=== PATIENT | male | born 1985 | race Caucasian/White ===

== ENCOUNTER 2022-08-21 05:16 | Emergency (ER) | payer SELFPAY ==
--- NOTE | ~2022-08-21 | US_ITS ---
EXAMINATION: US SCROTUM CLINICAL INFORMATION: Left testicular pain. COMPARISON: None available. TECHNIQUE: A sonogram of the scrotum was performed assessing ryan-scale appearance and color Doppler flow. Spectral Doppler analysis of the arterial and venous flow were performed in the testes bilaterally. FINDINGS: RIGHT: Right testicle measures 5.0 x 2.1 x 3.0 cm, volume 16.7 mL. No focal testicular parenchymal lesions are visualized. Spectral Doppler analysis of the arterial and venous flow is normal in the right testis. Right epididymal head is normal in size. And anechoic cyst measures 0.8 cm. A small right varicocele is seen with vessels measuring up to 0.25 cm and increased flow with Valsalva. No right hydrocele. Right epididymal Doppler flow is normal. LEFT: Left testicle measures 5.0 x 2.0 x 2.9 cm, volume 14.5 mL. No focal testicular parenchymal lesions are visualized. Spectral Doppler analysis of the arterial and venous flow is normal in the left testis. Left epididymal head is normal in size. There is a small left varicocele with vessels measuring up to 0.26 cm and increased flow with Valsalva. No left hydrocele. Left epididymal Doppler flow is normal. US/US scrotum doppler IMPRESSION: 1. No intratesticular abnormality bilaterally. 2. Small bilateral varicoceles. 3. Small right epididymal cyst demonstrates benign features.
--- NOTE | ~2022-08-21 | US_ITS ---
EXAMINATION: US SCROTUM CLINICAL INFORMATION: Left testicular pain. COMPARISON: None available. TECHNIQUE: A sonogram of the scrotum was performed assessing ryan-scale appearance and color Doppler flow. Spectral Doppler analysis of the arterial and venous flow were performed in the testes bilaterally. FINDINGS: RIGHT: Right testicle measures 5.0 x 2.1 x 3.0 cm, volume 16.7 mL. No focal testicular parenchymal lesions are visualized. Spectral Doppler analysis of the arterial and venous flow is normal in the right testis. Right epididymal head is normal in size. And anechoic cyst measures 0.8 cm. A small right varicocele is seen with vessels measuring up to 0.25 cm and increased flow with Valsalva. No right hydrocele. Right epididymal Doppler flow is normal. LEFT: Left testicle measures 5.0 x 2.0 x 2.9 cm, volume 14.5 mL. No focal testicular parenchymal lesions are visualized. Spectral Doppler analysis of the arterial and venous flow is normal in the left testis. Left epididymal head is normal in size. There is a small left varicocele with vessels measuring up to 0.26 cm and increased flow with Valsalva. No left hydrocele. Left epididymal Doppler flow is normal. US/US scrotum IMPRESSION: 1. No intratesticular abnormality bilaterally. 2. Small bilateral varicoceles. 3. Small right epididymal cyst demonstrates benign features.
--- NOTE | ~2022-08-21 | CT_ITS ---
EXAMINATION: CT ABDOMEN AND PELVIS WITHOUT CONTRAST CLINICAL INFORMATION: Left abdominal pain radiating to testicle COMPARISON: None available. TECHNIQUE: Multidetector volumetric imaging was performed from the superior aspect of the liver through the pubic symphysis. Sagittal and coronal reformatted images were obtained on the technologist's workstation. This CT examination was performed using dose optimization techniques as appropriate, variously including the following: *Automated exposure control *Adjustment of mA and/or kV according to patient size (this includes techniques or standardized protocols for targeted exams where dose is matched to indication/reason for exam; i.e. extremities or head) *Use of iterative reconstruction technique DLP: 466 mGy-cm FINDINGS: LUNG BASES: The visualized lung bases are unremarkable. LIVER, GALLBLADDER, AND BILIARY TREE: The liver is normal in size, shape, and attenuation. No focal hepatic lesion or biliary ductal dilatation is present. The gallbladder is unremarkable with no evidence of radiopaque gallstones, gallbladder wall thickening, or obvious pericholecystic inflammatory changes. PANCREAS: Unremarkable. SPLEEN: Unremarkable. ADRENAL GLANDS: Unremarkable. KIDNEYS AND URETERS: No hydronephrosis, perinephric inflammatory changes or perinephric fluid collections are identified. No ureterectasis identified. No urolithiasis visualized. BLADDER: Mild physiologic distention. No mural thickening. No bladder calculi noted. Within the visualized urethra, no calculi identified. GASTROINTESTINAL TRACT: No intestinal dilatation or mural thickening noted. The appendix measures approximately 5.7 mm diameter, within normal limits of size. No periappendiceal inflammatory changes identified. High density material is present in the lumen of the appendix may represent developing more confluent small appendicoliths. The sigmoid mesentery and small bowel mesentery are normal in appearance. Normal appearance of the stomach and duodenum. ABDOMINAL WALL: A periumbilical hernia containing omental fat measures 1 cm in diameter. LYMPH NODES: Normal. VASCULAR: Unremarkable. PELVIC VISCERA: Normal appearance of the prostate and seminal vesicles. OSSEOUS STRUCTURES: Unremarkable. CT/CT abdomen pelvis wo IV con IMPRESSION: Normal unenhanced CT of the abdomen and pelvis. No urolithiasis. No hydronephrosis or ureterectasis. Fleischner guidelines were followed.
[2022-08-21 05:38] VITALS: BP 148/89; PULSE 95; RESP 18; TEMP 36.6; O2SAT 98; BMI 22.8
[2022-08-21 05:52] LABS: Appearance Urine Clear; Color Urine Dark Yellow; Glucose Urine UA Negative (Negative); Leukocyte Esterase Urine Negative (Negative); UMIC TRIGGER UACC YES; Urine Blood Negative (Negative); Urine Ketones Negative (Negative); Urine Protein Negative (Neg-Trace)
[2022-08-21 06:38] VITALS: BP 138/88; PULSE 90; RESP 19; TEMP 36.9; O2SAT 97
[2022-08-21 06:48] LABS: Bacteria Urine None Seen (None Seen); Hyaline Casts Urine 0-2 /LPF (0-2); RBC Urine 0-2 /HPF (0-2); Squamous Epithelial Cell Urine 0-2 /HPF (0-2); WBC Urine 0-5 /HPF (0-5)
--- NOTE | 2022-08-21 07:14 | ED_ITS ---
HPI - Male Genitourinary General Chief complaint: Urogenital-Male Stated complaint: bladder pain, hurts to urinate Time Seen by Provider: 08/21/22 06:44 Source: patient Mode of arrival: ambulatory Limitations: no limitations History of Present Illness HPI Narrative: this is a 37-year-old male who has a history of general herpes who presents to the ER with complaints of LLQ pain with radiation to left testicle/penis, dysuria, urinary frequency x several days. patient reports that he was seen by a out patient provider and diagnosed with urinary tract infection and prescribed Levaquin which he has took for 5 days (complete course). He feels that his symptoms have continued are in are not any better. Patient denies any back pain, vomiting, fever, diarrhea or constipation. He denies any rectal pain or rectal pressure. Patient reports that he is not currently sexually active and last had sexual intercourse about 6 months ago. He reports after that sexual intercourse he developed genital herpes and was diagnosed in [place]. He was prescribed antiviral medication which he took with resolution of his symptoms. At that time he was also tested for gonorrhea and chlamydia and was negative. He denies any new sexual partners since this incident and does not feel that he needs to be tested for STDs. Related Data Allergies Allergy/AdvReac Type Severity Reaction Status Date / Time Unable to Assess Allergy Verified 08/21/22 06:51 Review of Systems Review of Systems: Yes all other systems are reviewed and are negative Constitutional: Constitutional: Reports no additional constitutional complaints, Denies body ache(s), Denies chills, Denies fever(s), Denies headache(s) and Denies weakness Eyes: Eyes: Reports no additional eye complaints and Denies change in vision ENT: Reports system reviewed and no additional complaints, except as documented, Denies dizziness, Denies headache(s), Denies nasal congestion, Den ies nasal discharge and Denies neck pain Cardiovascular: Cardiovascular: Reports no additional cardiovascular complaints, Denies chest pain, Denies leg edema and Denies dyspnea Respiratory: Respiratory: Reports no additional respiratory complaints, Denies cough and Denies dyspnea Gastrointestinal: Gastrointestinal: Reports no additional gastrointestinal complaints, Reports abdominal pain, Denies diarrhea, Denies nausea and Denies vomiting Genitourinary: Genitourinary: Reports dysuria, Denies flank pain, Denies penile discharge, Reports testicular pain, Denies urinary frequency, Denies urinary hesitancy, Denies urinary incontinence and Denies urinary urgency Musculoskeletal: Musculoskeletal: Reports no additional musculoskeletal complaints, Denies back pain, Denies arthralgias, Denies joint swelling, Denies neck pain, Denies numbness and Denies tingling Integumentary/Breasts: Skin/Breast: Reports system reviewed and no additional complaints, except as docu and Denies rash Neurologic: Reports system reviewed and no additional complaints, except as documented, Denies Abnormal speech present, Denies dizziness, Denies headache(s), Denies numbness, Denies tingling and Denies weakness PMFSH Past Medical History Attestation statement: The following information was validated with the patient. Source: old records reviewed and nursing notes reviewed Social History Social History Advance Directives: No Advance Directives Information Provided: No Physical Exam Vital Signs: Vital Signs: Last Vital Signs Temp 98.5 F 08/21/22 06:38 Pulse 73 08/21/22 10:23 Resp 14 08/21/22 10:23 BP 121/84 08/21/22 10:23 Pulse Ox 98 08/21/22 10:23 O2 Del Method Room Air 08/21/22 10:23 BMI result Body Mass Index 22.8 Const: General: cooperative, healthy appearing, comfortable and no acute distress Orientation/consciousness: patient oriented x3 Limitations: no limitations HEENT: Head: Yes normal to inspection Ears: hearing grossly normal bilaterally General nose exam: Normal external nose present Face and sinus: Yes normal facial exam Mouth: Normal oral and palatal mucosa present Throat: Yes posterior oropharynx normal Eyes: General: appearance normal, both eyes and all related structures Pupils: Equal, round and reactive pupils present Neck: Neck: Yes normal visual inspection Chest: Chest palpation & inspection: normal inspection of the chest Resp: Effort & Inspection: normal respiratory effort Auscultation: clear to auscultation bilaterally Cardio: Rate: regular rate Rhythm: regular rhythm Peripheral pulses: Peripheral pulses 2+ throughout GI: Inspection: Yes normal to inspection Palpation (GI): Soft to palpation, Tenderness to palpation present (GI) ( Left lower quadrant tenderness with no rebound or guarding) in the LLQ; Robbins's sign negative, obturator sign negative, psoas sign negative, with no rebound tenderness and Rovsing's sign negative and no guarding Auscultation: normal bowel sounds : 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 Penis: normal penis and uncircumcised Meatus: meatus normal Scrotum: scrotum normal Testes: no testicular swelling and testicular tenderness ( left-sided) Back/Spine/Pelvis: Thoracic/Lumbar Spine: thoracic and lumbar spine normal to inspection Skin: General skin exam: no rashes or lesions noted Neuro: General: patient oriented x3, no focal motor deficits and normal sensation to monofilament Cranial nerves: Yes Equal, round and reactive pupils present Cognition (Neuro): normal cognition Speech: No Abnormal speech present Gait exam (Neuro): Normal gait present Motor exam (neuro): 5/5 motor strength present throughout Extrem: General: Yes normal to inspection Course Course Course Narrative: labs and UA are negative. CT and ultrasound are also unremarkable. Patient does not want STD testing. I do not see any rash consistent with herpes. I did recommend patient take Motrin or Tylenol for pain as needed and follow up with his primary care doctor for any persistent symptoms. I recommend that he seek care if he were to develop any rash consistent with his herpes. Reviewed worrisome signs/symptoms with patient and when to seek additional care. Comfortable with discharge home Medications Administered Discontinued Medications Generic Name Dose Route Start Last Admin Trade Name Nelson PRN Reason Stop Dose Admin Ketorolac Tromethamine 60 mg 08/21/22 06:51 08/21/22 07:59 Ketorolac Tromethamine 60 Mg/2 Ml Vial IM 08/21/22 06:52 60 mg ONCE ONE Administration Medical Decision Making Medical Decision Making [facility] Narrative: this is a 37-year-old male who presents to the ER with complaints of a left lower abdominal pain with radiation to the last testicle/penis with dysuria despite being on Levaquin for 1 week for presumed urinary tract infection. on exam patient with some mild tenderness the left lower quadrant and left testicle with no obvious swelling or deformity. Patient reports he has not been sexually active and and after his last sexual intercourse about 6 months ago he was tested for gonorrhea and chlamydia was negative. He does not feel that he needs additional STI testing. Will obtain labs, UA, CT abdomen pelvis, testicular ultrasound Differential Diagnosis Differential Diagnoses: The differential diagnosis associated with the presentation includes UTI, STI, pyelonephritis, renal colic, testicular torsion, epididymitis Lab Data [facility] Lab Attestation statement: I reviewed the patient's lab results. 08/21/22 08:30 08/21/22 08:30 Labs: Lab Results 08/21/22 08/21/22 08/21/22 Range/Units 05:44 08:30 08:30 WBC 4.6 L (4.8-10.8) X10*3/uL RBC 5.82 H (4.60-5.80) X10*6/uL Hgb 16.0 (14.0-18.0) g/dl Hct 48.2 (42.0-52.0) % MCV 82.8 (80.0-98.0) fL MCH 27.5 (27.0-33.0) pg MCHC 33.2 (31.0-36.0) g/dl RDW 13.7 (11.0-16.0) % Plt Count 205 (160-400) X10*3/uL MPV 8.7 L (9.4-12.4) fL Immature Gran % (Auto) 0.2 (0.0-0.4) % Neut % (Auto) 68.8 (45-73) % Lymph % (Auto) 22.9 (20-40) % [place] % (Auto) 6.8 (2-11) % Eos % (Auto) 1.1 (0-4) % Baso % (Auto) 0.2 (0-2) % Lymph # (Auto) 1.0 L (1.2-4.9) X10*3/uL [place] # (Auto) 0.3 (0.1-1.2) X10*3/uL Eos # (Auto) 0.1 (0.0-0.4) X10*3/uL Baso # (Auto) 0.0 (0.0-0.2) X10*3/uL Abs Immat Gran (auto) 0.01 (0.00-0.03) X10*3/uL Absolute Neuts (auto) 3.1 (2.0-8.3) x10*3/uL Absolute Nucleated RBC 0.000 (0.0-0.012) X10*3/uL Nucleated RBC % (auto) 0.0 (0.0-0.2) /100WBC Sodium 142 (135-145) mmol/L Potassium 4.3 (3.3-5.1) mmol/L Chloride 109 H (96-108) mmol/L Carbon Dioxide 27 (22-29) mmol/L Anion Gap 10 L (12-20) BUN 6 L (9-16) mg/dL Creatinine 1.11 (0.5-1.4) mg/dL Estim Creat Clear Calc 97.2 Estimated GFR > 60 Random Glucose 89 (60-115) mg/dL Calcium 9.5 (8.4-10.2) mg/dL Total Bilirubin 0.7 (0.0-1.0) mg/dL Direct Bilirubin 0.2 (0.0-0.5) mg/dL AST 16 (5-37) U/L ALT 22 (0-40) U/L Alkaline Phosphatase 52 (39-117) U/L Total Protein 6.8 (6.5-8.0) g/dL Albumin 4.3 (3.5-5.0) g/dL Urine Color Dark Yellow Urine Appearance Clear Urine pH 6.0 (5.0-9.0) Ur Specific [place] 1.010 (1.005-1.025) Urine Protein Negative (Neg-Trace) mg/dL Urine Glucose (UA) Negative (Negative) mg/dL Urine Ketones Negative (Negative) mg/dL Urine Blood Negative (Negative) Urine Nitrite See Note (Negative) Ur Leukocyte Esterase Negative (Negative) Urine RBC 0-2 (0-2) /HPF Urine WBC 0-5 (0-5) /HPF Ur Squamous Epith Cells 0-2 (0-2) /HPF Urine Bacteria None Seen (None Seen) Hyaline Casts 0-2 (0-2) /LPF Independent Interpretation I performed an independent interpretation of an: Ultrasound and CT Scan Interpretation: I independently reviewed the ultrasound report/CT scan and agree with the ultrasound report Radiology Impression Discussion of test interpretation with radiology: I have reviewed the radiologist's reading. Radiologist Impression: FINDINGS: RIGHT: Right testicle measures 5.0 x 2.1 x 3.0 cm, volume 16.7 mL. No focal testicular parenchymal lesions are visualized. Spectral Doppler analysis of the arterial and venous flow is normal in the right testis. Right epididymal head is normal in size. And anechoic cyst measures 0.8 cm. A small right varicocele is seen with vessels measuring up to 0.25 cm and increased flow with Valsalva. No right hydrocele. Right epididymal Doppler flow is normal. LEFT: Left testicle measures 5.0 x 2.0 x 2.9 cm, volume 14.5 mL. No focal testicular parenchymal lesions are visualized. Spectral Doppler analysis of the arterial and venous flow is normal in the left testis. Left epididymal head is normal in size. There is a small left varicocele with vessels measuring up to 0.26 cm and increased flow with Valsalva. No left hydrocele. Left epididymal Doppler flow is normal. US/US scrotum doppler IMPRESSION: ? 1. No intratesticular abnormality bilaterally. 2. Small bilateral varicoceles. 3. Small right epididymal cyst demonstrates benign features. FINDINGS: LUNG BASES: The visualized lung bases are unremarkable.? LIVER, GALLBLADDER, AND BILIARY TREE: The liver is normal in size, shape, and attenuation. No focal hepatic lesion or biliary ductal dilatation is present. The gallbladder is unremarkable with no evidence of radiopaque gallstones, gallbladder wall thickening, or obvious pericholecystic inflammatory changes.? PANCREAS: Unremarkable.? SPLEEN: Unremarkable.? ADRENAL GLANDS: Unremarkable.? KIDNEYS AND URETERS: No hydronephrosis, perinephric inflammatory changes or perinephric fluid collections are identified. No ureterectasis identified. No urolithiasis visualized.? BLADDER: Mild physiologic distention. No mural thickening. No bladder calculi noted. Within the visualized urethra, no calculi identified.? GASTROINTESTINAL TRACT: No intestinal dilatation or mural thickening noted. The appendix measures approximately 5.7 mm diameter, within normal limits of size. No periappendiceal inflammatory changes identified. High density material is present in the lumen of the appendix may represent developing more confluent small appendicoliths. The sigmoid mesentery and small bowel mesentery are normal in appearance. Normal appearance of the stomach and duodenum.? ABDOMINAL WALL: A periumbilical hernia containing omental fat measures 1 cm in diameter.? LYMPH NODES: Normal. VASCULAR: Unremarkable. PELVIC VISCERA: Normal appearance of the prostate and seminal vesicles. ? OSSEOUS STRUCTURES: Unremarkable.? CT/CT abdomen pelvis wo IV con IMPRESSION: Normal unenhanced CT of the abdomen and pelvis. No urolithiasis. No hydronephrosis or ureterectasis. ? Fleischner guidelines were followed. Discharge Plan Discharge Clinical Impression: Abdominal pain Patient Disposition: Home, Self-Care Instructions: Abdominal Pain (ED) Additional Instructions: Your CT scan is normal. your ultrasound shows normal blood flow. Your labs are unremarkable. Your urine shows no signs of urinary tract infection. At t his time you declined STD testing. You do not have any rash that looks like herpes. I recommend that you take Motrin or Tylenol for pain and follow-up with primary care doctor for any persistent symptoms. If you do develop a rash that looks like your herpes then placed seek care as you may need medication at that time. Referrals: Physician,None [Primary Care Provider] - 1 week Interventions: ED Discharge Assessment Last Done: 08/21/22 10:44 Discharge Date/Time: 08/21/22 10:45
[2022-08-21] MEDS: Ketorolac Tromethamine 60 MG/2 ML VIAL IM (07:59)
[2022-08-21 08:34] LABS: MANUAL DIFF FLAG NO
[2022-08-21 08:35] LABS: Basophils Percent Auto 0.2 % (0-2); Eosinophils Absolute Auto 0.1 X10*3/uL (0.0-0.4); Eosinophils Percent Auto 1.1 % (0-4); Hematocrit 48.2 % (42.0-52.0); Imm Gran Abs Auto 0.01 X10*3/uL (0.00-0.03); Imm Gran Pct Auto 0.2 % (0.0-0.4); Lymphocytes Percent Auto 22.9 % (20-40); Mean Corpuscular HGB Conc 33.2 g/dl (31.0-36.0); Mean Corpuscular Hemoglobin 27.5 pg (27.0-33.0); Mean Corpuscular Volume 82.8 fL (80.0-98.0); Mean Platelet Volume 8.7 fL (9.4-12.4); Monocytes Absolute Auto 0.3 X10*3/uL (0.1-1.2); Monocytes Percent Auto 6.8 % (2-11); Neutrophils Absolute Auto 3.1 x10*3/uL (2.0-8.3); Neutrophils Percent Auto 68.8 % (45-73); Platelet Count 205 X10*3/uL (160-400); Red Blood Count 5.82 X10*6/uL (4.60-5.80); Red Cell Distribution Width 13.7 % (11.0-16.0); White Blood Count 4.6 X10*3/uL (4.8-10.8)
[2022-08-21 10:20] LABS: Alanine Aminotransferase 22 U/L (0-40); Albumin Level 4.3 g/dL (3.5-5.0); Alkaline Phosphatase 52 U/L (39-117); Anion Gap 10 (12-20); Aspartate Amino Transferase 16 U/L (5-37); Bilirubin Direct 0.2 mg/dL (0.0-0.5); Bilirubin Total 0.7 mg/dL (0.0-1.0); Blood Urea Nitrogen 6 mg/dL (9-16); Calcium 9.5 mg/dL (8.4-10.2); Carbon Dioxide 27 mmol/L (22-29); Chloride 109 mmol/L (96-108); Creatinine Clr Calc Pharmacy 97.2; Estimated Glomerular Filt Rate > 60; Glucose Random 89 mg/dL (60-115); Potassium 4.3 mmol/L (3.3-5.1); Sodium 142 mmol/L (135-145); Total Protein 6.8 g/dL (6.5-8.0)
[2022-08-21 10:23] VITALS: BP 121/84; PULSE 73; RESP 14; O2SAT 98
== END 2022-08-21 10:45 | disposition home or self-care (01) ==
PROVIDERS: Nurse Practitioner Family; Emergency Provider Emergency Medicine
DX: R10.32 Left lower quadrant pain (principal); N50.812 Left testicular pain
CPT/HCPCS: 36415; 74176; 76870; 80048; 80076; 81001; 85025; 93975; 96372; 99284; J1885

== ENCOUNTER 2022-08-22 17:59 | Emergency (ER) | payer SELFPAY ==
[2022-08-22 18:45] VITALS: BP 117/79; PULSE 86; RESP 17; TEMP 36.6; O2SAT 98; BMI 24.4
--- NOTE | 2022-08-22 18:45 | ED.MALEGU ---
HPI - Male Genitourinary General Chief complaint: Urogenital-Male Stated complaint: penile pain Time Seen by Provider: 08/22/22 19:43 Source: patient and old records reviewed Mode of arrival: ambulatory Limitations: no limitations History of Present Illness HPI Narrative: 37 y/o male presents to the ER for evaluation of difficulty urinating and pain with urination for the last 3 weeks. He also reports intermittent left testicular pain. He was treated with a course of Levaquin with no improvement. He was seen here yesterday for the same, had unremarkable CT scan abd/pelvis and testicular ultrasound. UA was negative as well. Now interested in STI testing. Last sexual encounter was 4 months ago. Hx genital herpes, denies any current lesions. No penile discharge. No abd pain, N/V/D, or back pain, No fever or chills. No hematuria. He states when he urinates it feels like razor blades and he feels like he is not fully emptying his bladder. MD Complaint: dysuria and other (suprapubic pain, difficulty urinating) Onset (ago): week(s) (3) Duration: constant Location: penis and abdomen Severity: severe Severity scale (1-10): 10 Quality: aching and stabbing Relieving factors: none Exacerbating factors: urination Associated symptoms: Reports urinary retention and dysuria Related Data Previous Rx's Medication Instructions Recorded cefuroxime axetil 250 mg tablet 250 mg PO BID 7 days #14 tabs 08/22/22 doxycycline hyclate 100 mg tablet 100 mg PO BID #14 tabs 08/22/22 ibuprofen 600 mg tablet 600 mg PO Q8H PRN pain #14 tabs 08/22/22 phenazopyridine 100 mg tablet 100 mg PO TID PRN bladder pain 6 08/22/22 (Pyridium) doses #6 tabs Allergies Allergy/AdvReac Type Severity Reaction Status Date / Time Unable to Assess Allergy Verified 08/21/22 06:51 Review of Systems Review of Systems: Yes all other systems are reviewed and are negative [facility] Social History Social History Advance Directives: No Advance Directives Information Provided: No Physical Exam Vital Signs: Vital Signs: Last Vital Signs Temp 97.8 F 08/22/22 18:45 Pulse 86 08/22/22 18:45 Resp 17 08/22/22 18:45 BP 117/79 08/22/22 18:45 Pulse Ox 98 08/22/22 18:45 O2 Del Method Room Air 08/22/22 18:45 BMI result Body Mass Index 24.4 Appearance: Alert. Oriented X3. No acute distress. Head: normocephalic, atraumatic. Eyes: normal inspection ENT: Pharynx normal. No tonsillar swelling or exudate. Neck: Normal inspection. CVS: Normal heart rate and rhythm. Pulses normal. Respiratory: No respiratory distress. Breath sounds normal. Abdomen: Soft and nontender. +BS x4 : normal inspection, penis uncircumsizes, easily retractable foreskin, clear discharge at urethral meatus. nontender testes bilaterally. no rash or genital lesions Skin: Skin warm and dry. Normal skin color. Normal skin turgor. No rashes. Extremities: No lower extremity edema. No joint swelling. Neuro/psych: Oriented X 3. grossly normal, nonfocal. Normal speech and cognition. Medications Administered Discontinued Medications Generic Name Dose Route Start Last Admin Trade Name Realq PRN Reason Stop Dose Admin Acetaminophen 975 mg 08/22/22 19:43 08/22/22 20:32 Acetaminophen 325 Mg Tablet PO 08/22/22 19:44 975 mg ONCE ONE Administration Ceftriaxone Sodium 500 mg/ 0 mg 08/22/22 19:57 08/22/22 20:34 Lidocaine HCl 1 ml IM 08/22/22 19:58 1 kit ONCE ONE Administration Doxycycline Monohydrate 100 mg 08/22/22 19:57 08/22/22 20:34 Doxycycline Monohydrate 100 Mg Capsule PO 08/22/22 19:58 100 mg ONCE ONE Administration Phenazopyridine HCl 100 mg 08/22/22 19:57 08/22/22 20:33 Phenazopyridine Hcl 100 Mg Tablet PO 08/22/22 19:58 100 mg ONCE ONE Administration Medical Decision Making Medical Decision Making MDM Narrative: 37 yo male presents to the ER for evaluation of 3 weeks of dysuria and sensation of incomplete bladder emptying. Seen here yesterday with negative workup including UA, CT and scrotal U/S. Today he is agreeable to STI testing and empiric treatment. IM rocephin ordered and PO doxycycline sent to his pharmacy. Given pyridium and tylenol for pain. UA today + nitrites. will treat with ceftin. No urinary retention on PVR. Stable for d/c home with abx and urology follow up. patient agrees with plan and all questions were answered. Differential Diagnosis Differential Diagnoses: The differential diagnosis associated with the presentation includes cystitis, UTI, STI, epididymitis, urinary retention, BPH, urinary reflux, phimosis, paraphimosis Lab Data MDM Lab Attestation statement: I reviewed the patient's lab results. Labs: Lab Results 08/22/22 Range/Units 19:59 Urine Color Dark Yellow Urine Appearance Clear Urine pH 6.0 (5.0-9.0) Ur Specific [place] <= 1.005 (1.005-1.025) Urine Protein Negative (Neg-Trace) mg/dL Urine Glucose (UA) Negative (Negative) mg/dL Urine Ketones Negative (Negative) mg/dL Urine Blood Negative (Negative) Urine Nitrite See Note (Negative) Ur Leukocyte Esterase Negative (Negative) Urine RBC 0-2 (0-2) /HPF Urine WBC 0-5 (0-5) /HPF Ur Squamous Epith Cells 0-2 (0-2) /HPF Urine Bacteria None Seen (None Seen) Hyaline Casts 0-2 (0-2) /LPF Radiology Impression Discussion of test interpretation with radiology: I have reviewed the radiologist's reading. Radiologist Impression: EXAMINATION: US SCROTUM CLINICAL INFORMATION: Left testicular pain. COMPARISON: None available. TECHNIQUE: A sonogram of the scrotum was performed assessing ryan-scale appearance and color Doppler flow. Spectral Doppler analysis of the arterial and venous flow were performed in the testes bilaterally. FINDINGS: RIGHT: Right testicle measures 5.0 x 2.1 x 3.0 cm, volume 16.7 mL. No focal testicular parenchymal lesions are visualized. Spectral Doppler analysis of the arterial and venous flow is normal in the right testis. Right epididymal head is normal in size. And anechoic cyst measures 0.8 cm. A small right varicocele is seen with vessels measuring up to 0.25 cm and increased flow with Valsalva. No right hydrocele. Right epididymal Doppler flow is normal. LEFT: Left testicle measures 5.0 x 2.0 x 2.9 cm, volume 14.5 mL. No focal testicular parenchymal lesions are visualized. Spectral Doppler analysis of the arterial and venous flow is normal in the left testis. Left epididymal head is normal in size. There is a small left varicocele with vessels measuring up to 0.26 cm and increased flow with Valsalva. No left hydrocele. Left epididymal Doppler flow is normal. US/US scrotum IMPRESSION: ? 1. No intratesticular abnormality bilaterally. 2. Small bilateral varicoceles. 3. Small right epididymal cyst demonstrates benign features. External Record Review External record reviewed: Outpatient record, Prior outpatient labs and Prior outpatient radiology Prescription Management I considered prescription management with: Pain Medication and Antibiotic Critical Care Time Critical Care Time Critical Care Time: No Discharge Plan Discharge Clinical Impression: Urinary tract infection Patient Disposition: Home, Self-Care Instructions: Dysuria (ED) Additional Instructions: Your urine test showed a urinary tract infection. Start the prescribed antibiotic (cefuroxime) tomorrow morning for this, complete the entire course and do not miss any doses You were given a shot of antibiotics in the muscle while in the ER - this will treat possible gonorrhea as well as start treating your UTI Take the prescribed doxycycline while we await STD testing results. IF your tests come back positive we will call you. Take doxycycline with food to help prevent upset stomach. Take the prescribed pyridium as needed for pain with urination. This will turn your urine orange, it is a normal side effect. Drink plenty of water Follow up with Urology. If you develop new or worsening symptoms call 911 or come back to the ER for further evaluation. Prescriptions: New doxycycline hyclate 100 mg tablet 100 mg PO BID Qty: 14 0RF phenazopyridine [Pyridium] 100 mg tablet 100 mg PO TID PRN (Reason: bladder pain) Qty: 6 0RF ibuprofen 600 mg tablet 600 mg PO Q8H PRN (Reason: pain) Qty: 14 0RF cefuroxime axetil 250 mg tablet 250 mg PO BID 7 Days Qty: 14 0RF Referrals: [facility] [place] [facility] [Provider Group] (dysuria x3 weeks. UA negative )
[2022-08-22 20:07] LABS: Appearance Urine Clear; Color Urine Dark Yellow; Glucose Urine UA Negative (Negative); Leukocyte Esterase Urine Negative (Negative); Specific Gravity - Urine <= 1.005 (1.005-1.025); UMIC TRIGGER UACC YES; Urine Blood Negative (Negative); Urine Ketones Negative (Negative); Urine Protein Negative (Neg-Trace)
[2022-08-22 20:20] LABS: Bacteria Urine None Seen (None Seen); Hyaline Casts Urine 0-2 /LPF (0-2); RBC Urine 0-2 /HPF (0-2); Squamous Epithelial Cell Urine 0-2 /HPF (0-2); UACC Culture Trigger YES; WBC Urine 0-5 /HPF (0-5)
[2022-08-22] MEDS: Acetaminophen 325 MG TABLET 975 MG PO (20:32)
[2022-08-22] MEDS: Phenazopyridine HCL 100 MG TABLET PO (20:33)
[2022-08-22] MEDS: Doxycycline Monohydrate 100 MG CAPSULE PO (20:34)
[2022-08-22] MEDS: cefTRIAXone sodium 500 MG, Lidocaine HCl 1 % MPF 1 ML IM (20:34)
--- NOTE | 2022-08-22 20:39 | PC.NURSE ---
pt bladder scanned pre and post, pt medicated per mar, provider into assess pt. Will continue to monitor
--- NOTE | 2022-08-22 21:19 | PC.NURSE ---
Reviewed discharge instruction with pt, pt verbalized understanding, no sign of distress upon discharge.
[2022-08-23 15:18] LABS: CT PCR NOT DETECTED (Not Detect.); NG PCR NOT DETECTED (Not Detect.)
== END 2022-08-22 21:22 | disposition home or self-care (01) ==
PROVIDERS: Physician Assistant; Emergency Provider Emergency Medicine
DX: N39.0 Urinary tract infection, site not specified (principal); N48.89 Other specified disorders of penis; R33.9 Retention of urine, unspecified; R30.0 Dysuria; Z79.899 Other long term (current) drug therapy
CPT/HCPCS: 0353U; 81001; 87086; 96372; 99283; 99284; J0696

== ENCOUNTER 2022-09-09 21:13 | Emergency (ER) | payer MEDICAID, SELFPAY ==
[2022-09-09 21:35] VITALS: BP 148/88; PULSE 85; RESP 18; TEMP 37.4; O2SAT 96; BMI 22.3
[2022-09-09 21:57] LABS: Appearance Urine Clear; Color Urine Orange; Glucose Urine UA 100 mg/dL (Negative); Leukocyte Esterase Urine Negative (Negative); PH 5.5 (5.0-9.0); Specific Gravity - Urine <= 1.005 (1.005-1.025); UMIC TRIGGER UACC YES; Urine Blood Negative (Negative); Urine Ketones Negative (Negative); Urine Protein Trace mg/dL (Neg-Trace)
[2022-09-09 22:06] LABS: Bacteria Urine None Seen (None Seen); Hyaline Casts Urine 0-2 /LPF (0-2); RBC Urine 0-2 /HPF (0-2); Squamous Epithelial Cell Urine 0-2 /HPF (0-2); WBC Urine 0-5 /HPF (0-5)
--- NOTE | 2022-09-10 02:03 | ED_ITS ---
HPI - Male Genitourinary General Chief complaint: Urogenital-Male Stated complaint: UTI? Time Seen by Provider: 09/10/22 01:34 Source: patient Mode of arrival: ambulatory Limitations: no limitations History of Present Illness HPI Narrative: 37-year-old male came to the ER for dysuria evaluation that has been going on for the past 4 weeks, patient finished a course of Levaquin with no improvement of his symptoms patient is sexually active with 2 partners, admitted to be homosexual did oral sex only with 2 different partners, patient also is known to have genital herpes. Related Data Previous Rx's Medication Instructions Recorded cefuroxime axetil 250 mg tablet 250 mg PO BID 7 days #14 tabs 08/22/22 doxycycline hyclate 100 mg tablet 100 mg PO BID #14 tabs 08/22/22 ibuprofen 600 mg tablet 600 mg PO Q8H PRN pain #14 tabs 08/22/22 phenazopyridine 100 mg tablet 100 mg PO TID PRN bladder pain 6 08/22/22 (Pyridium) doses #6 tabs valacyclovir 1 gram tablet 1,000 mg PO DAILY #5 tabs 09/10/22 (Valtrex) Allergies Allergy/AdvReac Type Severity Reaction Status Date / Time No Known Allergies Allergy Verified 09/09/22 21:38 Review of Systems Review of Systems: All other systems are reviewed and are negative Constitutional: Reports as per HPI and Reports no additional constitutional complaints Eyes: Reports as per HPI and Reports no additional eye complaints Reports system reviewed and no additional complaints, except as documented Cardiovascular: Reports as per HPI and Reports no additional cardiovascular complaints Respiratory: Reports as per HPI and Reports no additional respiratory complaints Gastrointestinal: Reports as per HPI and Reports no additional gastrointestinal complaints Genitourinary: Reports no additional female genitourinary complaints Musculoskeletal: Reports no additional musculoskeletal complaints Skin/Breast: Reports system reviewed and no additional complaints, except as docu Psychiatric: Reports no additional psychiatric complaints Endocrine: Reports no additional endocrine complaints Hematologic/Lymphatic: Reports no additional hematologic/lymphatic complaints Allergic/Immunologic: Reports no additional allergic/immunologic complaints Reports system reviewed and no additional complaints, except as documented and Reports Abnormal speech present PMFSH Social History Social History Advance Directives: No Advance Directives Information Provided: Yes Physical Exam Vital Signs: Vital Signs: Last Vital Signs Temp 99.4 F 09/09/22 21:35 Pulse 85 09/09/22 21:35 Resp 18 09/09/22 21:35 BP 148/88 H 09/09/22 21:35 Pulse Ox 96 09/09/22 21:35 O2 Del Method Room Air 09/09/22 21:35 BMI result Body Mass Index 22.3 vital signs have been reviewed as appeared to be correct. Blood pressure normal. Heart rate normal. Respiration rate normal. Temperature normal. Oxygen saturation normal. Appearance: Alert. Oriented X3. No acute distress. Head: Normal external exam. Normocephalic. Atraumatic. No Olivier signs noted. No raccoon eyes noted Eyes: PERRLA. EOMI. Conjunctiva and sclera normal. Eyelids normal. ENT: TM's Normal. Pharynx normal. Uvula midline. Moist mucous membranes. No trismus noted. No drooling noted. No muffled voice noted. Neck: Normal inspection. Neck supple. FROM. No adenopathy. Thyroid Normal. No meningeal signs. No neck mass noted. CVS: Normal heart rate and rhythm. Heart sound normal. No murmurs noted. Pulses normal throughout. Respiratory: No respiratory distress. Painless inspiration. Breath sounds normal. No wheezes/rales/rhonchi noted. Chest nontender. No accessory muscle usage noted or decreased air movement noted. Abdomen: Soft and nontender. Bowel sounds normal in all 4 quadrants. No distention noted. No organomegaly noted. No visible injury noted. exam: Uncircumcised, read small vesicle at the tip of meatus which is tender to touch, no ulcers, no lymph nodes. Patient is known to have history of herpes. Back: No CVA tenderness. Full range of motion noted. Skin: Skin warm and dry. Normal skin color. Normal skin turgor. No rashes/lesions/lacerations noted. Extremities: No lower extremity edema. Extremities exhibit normal range of motion. Extremities nontender. Neuro: Oriented X 3. Cranial nerve exam: II-XII are grossly intact No motor deficit. No sensory deficit. Reflexes normal. Course Course Course Narrative: possible STD /herpes. Patient recently tested negative for chlamydia and gonorrhea. will start the patient on Valtrex for active herpes. repeat STI testing today. Medical Decision Making Differential Diagnosis Differential Diagnoses: The differential diagnosis associated with the presentation includes ( STD, herpes genitalis.) Admission/Observation Consideration of admission/observation: Escalation of care including admission/observation considered Lab Data MDM Lab Attestation statement: I reviewed the patient's lab results. Labs: Lab Results 09/09/22 Range/Units 21:50 Urine Color [place] Urine Appearance Clear Urine pH 5.5 (5.0-9.0) Ur Specific [place] <= 1.005 (1.005-1.025) Urine Protein Trace (Neg-Trace) mg/dL Urine Glucose (UA) 100 H (Negative) mg/dL Urine Ketones Negative (Negative) mg/dL Urine Blood Negative (Negative) Urine Nitrite See Note (Negative) Ur Leukocyte Esterase Negative (Negative) Urine RBC 0-2 (0-2) /HPF Urine WBC 0-5 (0-5) /HPF Ur Squamous Epith Cells 0-2 (0-2) /HPF Urine Bacteria None Seen (None Seen) Hyaline Casts 0-2 (0-2) /LPF Discharge Plan Discharge Clinical Impression: Genital herpes simplex Patient Disposition: Home, Self-Care Instructions: Genital Herpes Simplex (ED) Prescriptions: New valacyclovir [Valtrex] 1 gram tablet 1,000 mg PO DAILY Qty: 5 0RF No Action doxycycline hyclate 100 mg tablet 100 mg PO BID Qty: 14 0RF phenazopyridine [Pyridium] 100 mg tablet 100 mg PO TID PRN (Reason: bladder pain) Qty: 6 0RF ibuprofen 600 mg tablet 600 mg PO Q8H PRN (Reason: pain) Qty: 14 0RF cefuroxime axetil 250 mg tablet 250 mg PO BID 7 Days Qty: 14 0RF
[2022-09-10 02:55] VITALS: BP 148/88; PULSE 65; RESP 18; TEMP 36.5; O2SAT 97
[2022-09-10] MEDS: valACYclovir HCL 500 MG TABLET PO (03:12)
[2022-09-10 05:47] LABS: CT PCR NOT DETECTED (Not Detect.); NG PCR NOT DETECTED (Not Detect.)
== END 2022-09-10 03:15 | disposition home or self-care (01) ==
PROVIDERS: Emergency Provider Emergency Medicine
DX: A60.00 Herpesviral infection of urogenital system, unspecified (principal)
CPT/HCPCS: 0353U; 81001; 81003; 99283

== ENCOUNTER 2022-12-08 14:13 | Outpatient (REF) | payer MEDICAID, SELFPAY ==
[2022-12-09 04:20] LABS: HBS Num1 46.14 mIU/mL (0-7.99); HBc Num1 0.08 S/CO (0.00-0.79); HBsAGNum1 0.44 S/CO (0.00-0.99); HIV AB/AG Nonreactive (Nonreactive); HIV Num 1 0.05 S/CO (0.00-0.99); Hepatitis A Antibody IgM 0.15 Index (0-0.79); Hepatitis B Core Antibody Nonreactive (Nonreactive); Hepatitis B Surface Antigen Negative (Negative); ~HepC Num1 0.06 S/CO (0.00-0.79); ~Hepatitis A Antibody IgM Nonreactive (Nonreactive); ~Hepatitis B Surface Antibody REACTIVE (Nonreactive); ~Hepatitis C Antibody Nonreactive (Nonreactive)
[2022-12-09 06:27] LABS: CT PCR NOT DETECTED (Not Detect.); NG PCR NOT DETECTED (Not Detect.)
[2022-12-10 04:09] LABS: Syphilis Screen Nonreactive (Nonreactive)
== END 2022-12-08 14:14 | disposition home or self-care (01) ==
LOC: HO.HHCL 14:13
PROVIDERS: Visit Provider Registered Nurse
DX: N34.2 Other urethritis (principal); Z20.2 Contact with and (suspected) exposure to infections with a predominantly sexual mode of transmission
CPT/HCPCS: 0353U; 36415; 86704; 86706; 86709; 86780; 86803; 87086; 87088; 87186; 87340; 87389

== ENCOUNTER 2022-12-25 12:03 | Outpatient (REF) | payer MEDICAID, SELFPAY ==
[2022-12-25 15:52] LABS: CT PCR NOT DETECTED (Not Detect.); NG PCR NOT DETECTED (Not Detect.)
[2022-12-27 17:28] LABS: Trichomonas vag. RNA Ur Male NOT DETECTED (NOT DETECTED)
== END 2022-12-25 12:04 | disposition home or self-care (01) ==
LOC: HO.HHCL 12:03
PROVIDERS: Visit Provider Nurse Practitioner Primary Care
DX: R30.0 Dysuria (principal); N39.0 Urinary tract infection, site not specified
CPT/HCPCS: 0353U; 87086; 87088; 87186; 87563; 87661

== ENCOUNTER 2022-12-27 11:05 | Emergency (ER) | payer MEDICAID, SELFPAY ==
[2022-12-27 11:44] VITALS: BP 114/85; PULSE 76; RESP 19; TEMP 36.6; O2SAT 98; BMI 23.0
[2022-12-27 12:25] LABS: Appearance Urine Cloudy; Color Urine Dark Yellow; Glucose Urine UA Negative (Negative); Leukocyte Esterase Urine Large (3+) (Negative); Nitrite Urine Positive (Negative); Specific Gravity - Urine 1.015 (1.005-1.025); UMIC TRIGGER UACC YES; Urine Blood Trace (Negative); Urine Ketones Negative (Negative); Urine Protein Negative (Neg-Trace)
[2022-12-27 12:37] LABS: Hyaline Casts Urine 0-2 /LPF (0-2); Squamous Epithelial Cell Urine 0-2 /HPF (0-2); UACC Culture Trigger YES; WBC Urine >50 /HPF (0-5)
[2022-12-27 12:38] LABS: Bacteria Urine None Seen (None Seen)
--- NOTE | 2022-12-27 12:42 | ED.MALEGU ---
HPI - Male Genitourinary General Chief complaint: Urogenital-Male Stated complaint: uti? Time Seen by Provider: 12/27/22 12:35 History of Present Illness HPI Narrative: Patient is a 37 year old male who presents to the ED due to dysuria. He has a PMH of having two testicular cysts, which have been worked up previously. He recently moved here from [place] in July and states he has been experiencing UTI symptoms every 3 weeks. He was recently prescribed antibiotics by his PCP, who he saw on , but reports that after finishing the medication his symptoms came back this morning. He experiences a burning sensation when he urinates. Patient denies associated fever, chills, nausea, vomiting or flank pain. He also denies any penile discharge, testicular pain, rashes, or itchiness in his groin region. His last sexual encounter was about a month ago. He was previously prescribed clotrimazole from Urgent Care, which he applies to the head of his penis. Seen at PCP 2 day ago and had urine culture done, waiting for results/antibiotics Does not want STI testing Related Data Previous Rx's Medication Instructions Recorded cefuroxime axetil 250 mg tablet 250 mg PO BID 7 days #14 tabs 08/22/22 doxycycline hyclate 100 mg tablet 100 mg PO BID #14 tabs 08/22/22 ibuprofen 600 mg tablet 600 mg PO Q8H PRN pain #14 tabs 08/22/22 phenazopyridine 100 mg tablet 100 mg PO TID PRN bladder pain 6 08/22/22 (Pyridium) doses #6 tabs valacyclovir 1 gram tablet 1,000 mg PO DAILY #5 tabs 09/10/22 (Valtrex) nitrofurantoin 100 mg PO Q12H #28 caps 12/27/22 monohydrate/macrocrystals 100 mg capsule (Macrobid) Allergies Allergy/AdvReac Type Severity Reaction Status Date / Time No Known Allergies Allergy Verified 12/27/22 11:44 Review of Systems Review of Systems: Yes all other systems are reviewed and are negative Constitutional: Constitutional: Reports no additional constitutional complaints, Denies body ache(s), Denies chills, Denies fever(s), Denies headache(s) and Denies weakness Eyes: Eyes: Reports no additional eye complaints and Denies change in vision ENT: Reports system reviewed and no additional complaints, except as documented, Denies dizziness, Denies headache(s), Denies nasal congestion, Denies nasal discharge and Denies neck pain Cardiovascular: Cardiovascular: Reports no additional cardiovascular complaints, Denies chest pain, Denies leg edema and Denies dyspnea Respiratory: Respiratory: Reports no additional respiratory complaints, Denies cough and Denies dyspnea Gastrointestinal: Gastrointestinal: Reports no additional gastrointestinal complaints, Denies abdominal pain, Denies diarrhea, Denies nausea and Denies vomiting Genitourinary: Genitourinary: Denies genital lesions, Reports dysuria, Denies flank pain, Denies penile discharge, Denies testicular mass and Denies testicular pain Musculoskeletal: Musculoskeletal: Reports no additional musculoskeletal complaints, Denies back pain, Denies arthralgias, Denies joint swelling, Denies neck pain, Denies numbness and Denies tingling Integumentary/Breasts: Skin/Breast: Reports system reviewed and no additional complaints, except as docu and Denies rash Neurologic: Reports system reviewed and no additional complaints, except as documented, Denies Abnormal speech present, Denies dizziness, Denies headache(s), Denies numbness, Denies tingling and Denies weakness PMFSH Past Medical History Attestation statement: The following information was validated with the patient. Source: old records reviewed and nursing notes reviewed Social History Social History Advance Directives: No Physical Exam Vital Signs: Vital Signs: Last Vital Signs Temp 98 F 12/27/22 11:44 Pulse 76 12/27/22 11:44 Resp 19 12/27/22 11:44 BP 114/85 12/27/22 11:44 Pulse Ox 98 12/27/22 11:44 BMI result Body Mass Index 23.0 Const: General: cooperative, healthy appearing, comfortable and no acute distress Orientation/consciousness: patient oriented x3 Limitations: no limitations HEENT: Head: Yes normal to inspection Ears: hearing grossly normal bilaterally General nose exam: Normal external nose present Face and sinus: Yes normal facial exam Mouth: Normal oral and palatal mucosa present Throat: Yes posterior oropharynx normal Eyes: General: appearance normal, both eyes and all related structures Pupils: Equal, round and reactive pupils present Neck: Neck: Yes normal visual inspection Chest: Chest palpation & inspection: normal inspection of the chest Resp: Effort & Inspection: normal respiratory effort Auscultation: clear to auscultation bilaterally Cardio: Rate: regular rate Rhythm: regular rhythm Peripheral pulses: Peripheral pulses 2+ throughout GI: Inspection: Yes normal to inspection Palpation (GI): Soft to palpation and nontender Auscultation: normal bowel sounds : Other: See in conjunction with Ngoc MARR General: Yes no CVA tenderness Male General Exam: Yes normal external exam Penis: normal penis and uncircumcised Meatus: meatus normal Scrotum: scrotum normal Testes: Testes normal Back/Spine/Pelvis: Back: no CVA tenderness Thoracic/Lumbar Spine: thoracic and lumbar spine normal to inspection Skin: General skin exam: no rashes or lesions noted Neuro: General: patient oriented x3, no focal motor deficits and normal sensation to monofilament Cranial nerves: Yes Equal, round and reactive pupils present Cognition (Neuro): normal cognition Speech: No Abnormal speech present Gait exam (Neuro): Normal gait present Motor exam (neuro): 5/5 motor strength present throughout Extrem: General: Yes normal to inspection Medical Decision Making Medical Decision Making MDM Narrative: Patient is a 37 year old male who presents to the ED due to dysuria. He has a PMH of having two testicular cysts, which have been worked up previously. He recently moved here from [place] in July and states he has been experiencing UTI symptoms every 3 weeks. He was recently prescribed antibiotics by his PCP, who he saw on , but reports that after finishing the medication his symptoms came back this morning. He experiences a burning sensation when he urinates. Patient denies associated fever, chills, nausea, vomiting or flank pain. He also denies any penile discharge, testicular pain, rashes, or itchiness in his groin region. His last sexual encounter was about a month ago. He was previously prescribed clotrimazole from Urgent Care, which he applies to the head of his penis. Seen at PCP 2 day ago and had urine culture done, waiting for results/antibiotics Does not want STI testing exam is normal no abdominal pain or CVA tenderness afebrile, nontoxic appear will send testing for UA did review culture from 12/25 which shows greater than 10,000 E coli, ESBL present sensitive to gentamicin, ertepanum and macrobid Differential Diagnosis Differential Diagnoses: The differential diagnosis associated with the presentation includes UTI low concern for renal colic or pyelonephritis the patient has no reports of abdominal pain, flank pain, fever or vomiting Admission/Observation Consideration of admission/observation: Escalation of care including admission/observation considered UTI, nontoxic, low concern for renal colic or pyelonephritis, tolerating p.o.. Patient can be discharged home with oral antibiotics and does not need IV antibiotics and admission Lab Data MDM Lab Attestation statement: I reviewed the patient's lab results. +uti Labs: Lab Results 12/27/22 Range/Units 12:18 Urine Color Dark Yellow Urine Appearance Cloudy Urine pH 7.0 (5.0-9.0) Ur Specific [place] 1.015 (1.005-1.025) Urine Protein Negative (Neg-Trace) mg/dL Urine Glucose (UA) Negative (Negative) mg/dL Urine Ketones Negative (Negative) mg/dL Urine Blood Trace H (Negative) Urine Nitrite Positive H (Negative) Ur Leukocyte Esterase Large (3+) H (Negative) Urine RBC 11-20 H (0-2) /HPF Urine WBC >50 H (0-5) /HPF Ur Squamous Epith Cells 0-2 (0-2) /HPF Urine Bacteria None Seen (None Seen) Hyaline Casts 0-2 (0-2) /LPF External Record Review External record reviewed: Prior outpatient labs reviewed urine culture from 2 days ago Tests considered The following testing was considered but not selected: no CVA tenderness, abdominal pain, fever or vomiting with concern for renal colic or pyelonephritis with need for CT abdomen and pelvis Prescription Management I considered prescription management with: Antibiotic see course abve Discharge Plan Discharge Clinical Impression: Urinary tract infection Patient Disposition: Home, Self-Care Instructions: Urinary Tract Infection in Men (ED) Prescriptions: New nitrofurantoin monohyd/m-cryst [Macrobid] 100 mg capsule 100 mg PO Q12H Qty: 28 0RF Rx Instructions: must administer with a meal/food No Action doxycycline hyclate 100 mg tablet 100 mg PO BID Qty: 14 0RF phenazopyridine [Pyridium] 100 mg tablet 100 mg PO TID PRN (Reason: bladder pain) Qty: 6 0RF ibuprofen 600 mg tablet 600 mg PO Q8H PRN (Reason: pain) Qty: 14 0RF cefuroxime axetil 250 mg tablet 250 mg PO BID 7 Days Qty: 14 0RF valacyclovir [Valtrex] 1 gram tablet 1,000 mg PO DAILY Qty: 5 0RF Referrals: Corinne Howell MD [Physician] - 1 week Loyda Au NP [Primary Care Provider] - 10 days Interventions: ED Discharge Assessment Last Done: 12/27/22 13:07 Discharge Date/Time: 12/27/22 13:08
== END 2022-12-27 13:08 | disposition home or self-care (01) ==
PROVIDERS: Nurse Practitioner Family; Emergency Provider Emergency Medicine; PCP Nurse Practitioner Primary Care
DX: N39.0 Urinary tract infection, site not specified (principal); Z79.899 Other long term (current) drug therapy
CPT/HCPCS: 81001; 87086; 99282; 99283

== ENCOUNTER 2023-01-09 11:08 | Outpatient (REF) | payer MEDICAID, SELFPAY ==
[2023-01-09 13:05] LABS: MANUAL DIFF FLAG NO
[2023-01-09 13:30] LABS: Basophils Percent Auto 0.4 % (0-2); Eosinophils Absolute Auto 0.2 X10*3/uL (0.0-0.4); Eosinophils Percent Auto 4.4 % (0-4); Hematocrit 47.9 % (42.0-52.0); Hemoglobin 15.3 g/dl (14.0-18.0); Imm Gran Abs Auto 0.01 X10*3/uL (0.00-0.03); Imm Gran Pct Auto 0.2 % (0.0-0.4); Lymphocytes Absolute Auto 1.1 X10*3/uL (1.2-4.9); Lymphocytes Percent Auto 23.1 % (20-40); Mean Corpuscular HGB Conc 31.9 g/dl (31.0-36.0); Mean Corpuscular Hemoglobin 27.3 pg (27.0-33.0); Mean Corpuscular Volume 85.4 fL (80.0-98.0); Mean Platelet Volume 9.6 fL (9.4-12.4); Monocytes Absolute Auto 0.4 X10*3/uL (0.1-1.2); Monocytes Percent Auto 7.6 % (2-11); Neutrophils Absolute Auto 2.9 x10*3/uL (2.0-8.3); Neutrophils Percent Auto 64.3 % (45-73); Platelet Count 205 X10*3/uL (160-400); Red Blood Count 5.61 X10*6/uL (4.60-5.80); White Blood Count 4.6 X10*3/uL (4.8-10.8)
[2023-01-09 14:11] LABS: Estimated Average Glucose 94 mg/dL; Hemoglobin A1c % 4.9 % (<6.0)
[2023-01-09 14:13] LABS: Anion Gap 14 (12-20); Blood Urea Nitrogen 10 mg/dL (9-16); Calcium 9.3 mg/dL (8.4-10.2); Carbon Dioxide 26 mmol/L (22-29); Chloride 105 mmol/L (96-108); Cholesterol 171 mg/dL (<200); Estimated Glomerular Filt Rate > 60; Glucose Random 82 mg/dL (60-115); HDL Cholesterol 37 mg/dL (>40); LDL Cholesterol Calculated 121 mg/dL (<100); Potassium 4.1 mmol/L (3.3-5.1); Sodium 141 mmol/L (135-145); Triglycerides 68 mg/dL (<150)
== END 2023-01-09 11:09 | disposition home or self-care (01) ==
LOC: HO.HHCL 11:08
PROVIDERS: Visit Provider Nurse Practitioner Primary Care
DX: Z00.00 Encounter for general adult medical examination without abnormal findings (principal); R30.0 Dysuria; Z13.220 Encounter for screening for lipoid disorders; Z13.1 Encounter for screening for diabetes mellitus
CPT/HCPCS: 36415; 80048; 80061; 83036; 85025; 87563

== ENCOUNTER 2023-02-06 07:51 | Outpatient (AMB) | payer MEDICAID, SELFPAY ==
--- NOTE | 2023-02-06 07:50 | A.OFFVIS_ITS ---
Intake Intake Visit Reasons: Recurrent UTIs/STI symptoms Intake Note: NEW Patient presents today to established treatment for Recurrent UTI's: Meds- Pyridium, Cefuroxime & Macrobid Allergies to Antibiotic- No Known Allergies Blood Thinner- None Patient Symptoms: Testicle Pain Director Corporate Compliance Required: No Accompanied by: Self / Same As Patient Allergies No Known Allergies Allergy (Verified 02/06/23 07:50) HPI HPI Comments History of Present Illness Details Robert is a 37-year-old male who presents today to the office to establish as a new patient for an evaluation of recurrent urinary tract infections/STI symptoms. 02/06/2023- Patient presents today for evaluation due to recurrent urinary tract infections. In review of consult notes he had a urine culture with multi drug resistant E.coli extended spectrum lactamase enzyme present. 12/25/22 urine culture was evaluated for fosfomycin susceptibility. The patient is sexually active, same sex partner. The Patient was diagnosed with genital herpes 3-4 months ago and was treated with valtrex. He was checked for Chlamydia and gonorrhoea and came back negative. He was empirically started on Doxycycline due to persistent symptoms. Patient also had scrotal imaging done which were within the normal limits. He states he was treated with multiple coursed of antibiotics and the scrotal pain persisted. He is currently on fosfomycin. I reviewed scrotum US results from 08/21/22 revealed that there is a small left varicocele Right epididymal head with anechoic cyst measures 0.8 cm. A small right varicocele. I reviewed the CT abdomen/pelvis results from 08/21/22 revealed no hydronephrosis, perinephric inflammatory changes or perinephric fluid collections are identified. No ureterectasis identified. No urolithiasis visualized.?? Patient states that his symptoms are improving on Fosfomycin. He was instructed to take the antibiotic daily for a week the every other day. He is currently taking it every other day. He was given a 3 week course at that time. He states scrotal has improved buty he still has scrotal pain. I will continue antibiotic for another week. Evaluation today?UA? leukocytes: negative; blood: negative. Testicles were not tender to palpation; prostate mildly tender; non boggy. Plan: To continue Fosfomycin for a total of 4 week therapy. Will refer to infectious disease. Discussed safe sex practises to use a condom. If the symptoms do not resolve in 3 months call or return to the office. Review of Systems Const All systems reviewed & are unremarkable except as noted in HPI and below Reports no additional complaints Eyes Reports no additional complaints ENT Reports no additional complaints Card Denies dyspnea Resp Denies cough and Denies dyspnea GI Reports no additional complaints Musc Reports no additional complaints Skin/Breast Denies rash and Denies unusual bruising Neuro Reports no additional complaints Psych Reports no additional complaints Endo Reports no additional complaints Vinicio/Lymph Reports no additional complaints Aller/Immun Reports no additional complaints Physical Exam Const General: healthy appearing, no acute distress and well developed Orientation/consciousness: patient oriented x3 HEENT Head: Yes normocephalic and Yes atraumatic Eyes Conjunctivae: conjunctivae normal Neck Neck: Yes normal visual inspection Chest Chest palpation & inspection: normal inspection of the chest Resp Effort & Inspection: normal respiratory effort Cardio Rate: regular rate GI Inspection: Yes normal to inspection Palpation (GI): Soft to palpation Other: Prostate Exam: nonboggy, mild tenderness to palp Penis: normal penis and uncircumcised (foreskin retracted - glans normal) Scrotum: scrotum normal Skin General skin exam: no rashes or lesions noted Neuro General: patient oriented x3 Extrem General: No pedal edema Psych Appearance: grossly normal Affect: normal affect Results AMB Urinalysis, Automated UA Leukoctes 0 Mac/uL Last Edit by TENA Gill on 02/06/23 08:32 UA Nitrite Negative Last Edit by TENA Gill on 02/06/23 08:32 UA Urobilinogen 0.2 mg/dL Last Edit by TENA Gill on 02/06/23 08:3 2 UA Protein 0 mg/dL Last Edit by TENA Gill on 02/06/23 08:32 UA pH 6.0 Last Edit by TENA Gill on 02/06/23 08:32 UA Blood 0 Yoan/uL Last Edit by Esther SaulTENA yepez on 02/06/23 08:32 UA Specific [place] 1.015 Last Edit by Esther SaulELIAS yepezA on 02/06/23 08: 32 UA Ketone Negative Last Edit by Esther SaulTENA yepez on 02/06/23 08:32 UA Bilirubin 0 mg/dL Last Edit by ELIAS GillA on 02/06/23 08:32 UA Glucose 0 mg/dL Last Edit by ELIAS GillA on 02/06/23 08:32 Results Reviewed Results Reviewed: Laboratory Last Values Urine pH (Auto) 6.0 02/06/23 07:51 Specific [place] (Auto) 1.015 02/06/23 07:51 Urine Protein (Auto) 0 mg/dL 02/06/23 07:51 Glucose (UA)(Auto) 0 mg/dL 02/06/23 07:51 Urine Ketones (Auto) Negative 02/06/23 07:51 Urine Blood (Auto) 0 Yoan/uL 02/06/23 07:51 Urine Nitrite (Auto) Negative 02/06/23 07:51 Urine Bilirubin (Auto) 0 mg/dL 02/06/23 07:51 Urine Urobilinogen (Auto) 0.2 mg/dL 02/06/23 07:51 Leukocyte Esterase (Auto) 0 Mac/uL 02/06/23 07:51 Date of Service: 08/21/22 EXAMINATION: CT ABDOMEN AND PELVIS WITHOUT CONTRAST?? CLINICAL INFORMATION: Left abdominal pain radiating to testicle?? COMPARISON: None available. FINDINGS: LUNG BASES: The visualized lung bases are unremarkable.?? LIVER, GALLBLADDER, AND BILIARY TREE: The liver is normal in size, shape, and attenuation. No focal hepatic lesion or biliary ductal dilatation is present. The gallbladder is unremarkable with no evidence of radiopaque gallstones, gallbladder wall thickening, or obvious pericholecystic inflammatory changes.?? PANCREAS: Unremarkable.?? SPLEEN: Unremarkable.?? ADRENAL GLANDS: Unremarkable.?? KIDNEYS AND URETERS: No hydronephrosis, perinephric inflammatory changes or perinephric fluid collections are identified. No ureterectasis identified. No urolithiasis visualized.?? BLADDER: Mild physiologic distention. No mural thickening. No bladder calculi noted. Within the visualized urethra, no calculi identified.?? GASTROINTESTINAL TRACT: No intestinal dilatation or mural thickening noted. The appendix measures approximately 5.7 mm diameter, within normal limits of size. No periappendiceal inflammatory changes identified. High density material is present in the lumen of the appendix may represent developing more confluent small appendicoliths. The sigmoid mesentery and small bowel mesentery are normal in appearance. Normal appearance of the stomach and duodenum.?? ABDOMINAL WALL: A periumbilical hernia containing omental fat measures 1 cm in diameter.?? LYMPH NODES: Normal. VASCULAR: Unremarkable. PELVIC VISCERA: Normal appearance of the prostate and seminal vesicles. OSSEOUS STRUCTURES: Unremarkable.?? IMPRESSION: Normal unenhanced CT of the abdomen and pelvis. No urolithiasis. No hydronephrosis or ureterectasis. Date of Service: 08/21/22 EXAMINATION: US SCROTUM CLINICAL INFORMATION:? Left testicular pain. COMPARISON:? None available. FINDINGS: RIGHT: Right testicle measures 5.0 x 2.1 x 3.0 cm, volume 16.7 mL. No focal testicular parenchymal lesions are visualized. Spectral Doppler analysis of the arterial and venous flow is normal in the right testis. Right epididymal head is normal in size. And anechoic cyst measures 0.8 cm. A small right varicocele is seen with vessels measuring up to 0.25 cm and increased flow with Valsalva. No right hydrocele. Right epididymal Doppler flow is normal. LEFT: Left testicle measures 5.0 x 2.0 x 2.9 cm, volume 14.5 mL. No focal testicular parenchymal lesions are visualized. Spectral Doppler analysis of the arterial and venous flow is normal in the left testis.? Left epididymal head is normal in size. There is a small left varicocele with vessels measuring up to 0.26 cm and increased flow with Valsalva. No left hydrocele. Left epididymal Doppler flow is normal. IMPRESSION: 1. No intratesticular abnormality bilaterally. 2. Small bilateral varicoceles. 3. Small right epididymal cyst demonstrates benign features Collected: 12/25/22-1225 Status: COMP Req#: [id number] Received: 12/25/22-134 Source: [facility] Sp Desc: Clean Cat Subm Dr: SHANTELL SHARMA NP Ordered: Urine Culture Procedure Result Verified Site Urine Culture Final 01/07/23 Organism 1 Escherichia coli Quant 10,000 to 50,000 cfu/mL ESBL Note: NOTE: Extended-Spectrum Beta-Lactamase enzyme present 12/29/22 PER SHANTELL SHARMA NP-ORGANISM SENT TO REFERENCE LABORATORY FOR FOSFOMYCIN SUSCEPTIBILITY SPECIMEN SOURCE: URINE ORGANISM: ESCHERICHIA COLI ANTIMICROBIAL 1: FOSFOMYCIN DEEP: 0.5 S DEEP values are expressed in mcg/mL. S=SUSCEPTIBLE NS=NONSUSCEPTIBLE I=INTERMEDIATE R=RESISTANT The nonsusceptible category is used when the DEEP is above the susceptible breakpoint but only a susceptible interpretation criterion has been designated by CLSI because of the absence or rare occurence of resistant strains. All breakpoints are based on FDA or CLSI guidelines. Only the DEEP value is reported when a FDA or CLSI guideline is not available. Site Information EZ: [employer] ([employer]) [facility], [address] [place] [id number] License Registration Examiner: Lauren Fernandez MD,PhD,KRISHNA E coli M.I.C. RX --------- --- Ampicillin >=32 R Ceftriaxone >=64 R Ertapenem <=0.12 S Gentamicin <=1 S Levofloxacin >=8 R Nitrofurantoin <=16 S Trimethoprim/Sulfamethoxazole >=320 R Assessment & Plan Assessment & Plan (1) STD (male): Code(s): A64 - Unspecified sexually transmitted disease (2) UTI due to extended-spectrum beta lactamase (ESBL) producing Escherichia coli: Code(s): N39.0 - Urinary tract infection, site not specified; B96.29 - Other Escherichia coli [E. coli] as the cause of diseases classified elsewhere; Z16.12 - Extended spectrum beta lactamase (ESBL) resistance (3) Testicle pain: Code(s): N50.819 - Testicular pain, unspecified Plan To continue Fosfomycin for a total of 4 week therapy. Will refer to infectious disease.? Discussed safe sex practises to use a condom. If the symptoms do not resolve in 3 months call or return to the office. Orders: Orders AMB Urinalysis Automated 02/06/23 Z13.9 - Encounter for screening, unspecified Referrals Infectious Disease Referral B96.29 - Other Escherichia coli [E. coli] as the cause of diseases classified elsewhere, N39.0 - Urinary tract infection, site not specified, Z16.12 - Extended spectrum beta lactamase (ESBL) resistance Medications: New fosfomycin tromethamine 1 packet PO Q OTHER DAY 3 ea 0RF Patient Instructions: The patient had an opportunity to ask questions regarding treatment plan. All questions were answered. Imaging, Laboratory studies and physical exam results were discussed and reviewed in detail. No major barriers to understanding were identified. The patient expressed understanding and agreement with the above treatment plan.? ? ? The patient is aware they should contact our office by phone for worsening of their current condition or the appearance of new symptoms. Compliance is encouraged with any medications and followup testing that is ordered.? ? ? It is a privilege to be allowed the opportunity to participate in the urologic care of your patient. If you have any questions or concerns regarding treatment for the above conditions please do not hesitate to contact me. The office telephone contact is [phone].? ? ? This note is constructed in part using voice recognition software. While every effort has been made to ensure accuracy rag grader errors may have been included.? ? ? Yours sincerely,? ? ? Corinne Howell MD? Coding Level of Care Code New Pt Level 4 (89789) Diagnoses STD (male) A64 UTI due to extended-spectrum beta lactamase (ESBL) producing Escherichia coli N39.0; B96.29; Z16.12 Testicle pain N50.819
== END 2023-02-06 09:20 | disposition home or self-care (01) ==
PROVIDERS: PCP Nurse Practitioner Primary Care; Visit Provider Urology
DX: A64 Unspecified sexually transmitted disease (principal); N39.0 Urinary tract infection, site not specified; B96.29 Other Escherichia coli [E. coli] as the cause of diseases classified elsewhere; Z16.12 Extended spectrum beta lactamase (ESBL) resistance; N50.819 Testicular pain, unspecified
CPT/HCPCS: 99204

== ENCOUNTER → 2023-02-06 07:51 | Outpatient (BNVA) | payer MEDICAID, SELFPAY | PROVIDERS: PCP Nurse Practitioner Primary Care; Visit Provider Urology | DX: N39.0 Urinary tract infection, site not specified (principal); B96.29 Other Escherichia coli [E. coli] as the cause of diseases classified elsewhere; Z16.12 Extended spectrum beta lactamase (ESBL) resistance; A64 Unspecified sexually transmitted disease; I86.1 Scrotal varices | CPT/HCPCS: 81003 ==

== ENCOUNTER 2023-04-23 13:19 | Outpatient (REF) | payer MEDICAID, SELFPAY | END 2023-04-23 13:20 | disposition home or self-care (01) | LOC: HO.HHCL 13:19 | PROVIDERS: Visit Provider Nurse Practitioner Primary Care | DX: Z11.4 Encounter for screening for human immunodeficiency virus [HIV] (principal); Z79.899 Other long term (current) drug therapy | CPT/HCPCS: 36415; 80076; 87536 ==

== ENCOUNTER 2023-10-21 19:56 | Emergency (ER) | payer MEDICAID, SELFPAY ==
[2023-10-21 20:03] VITALS: BP 152/102; PULSE 88; RESP 18; TEMP 36.6; O2SAT 97; BMI 26.8
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
[2023-10-21 20:35] LABS: Appearance Urine Clear; Color Urine Yellow; Glucose Urine UA Negative (Negative); Leukocyte Esterase Urine Negative (Negative); Nitrite Urine Negative (Negative); Urine Blood Negative (Negative); Urine Ketones Negative (Negative); Urine Protein Negative (Neg-Trace)
[2023-10-22] VITALS: BP 150/96; PULSE 76; RESP 18; TEMP 37.1; O2SAT 98
[2023-10-23 03:37] LABS: Syphilis Screen Nonreactive (Nonreactive)
== END 2023-10-22 03:05 | disposition left against medical advice (07) ==
PROVIDERS: Physician Assistant; Emergency Provider Emergency Medicine; PCP Nurse Practitioner Primary Care
DX: N48.21 Abscess of corpus cavernosum and penis (principal)
CPT/HCPCS: 36415; 81003; 86780; 99283

== ENCOUNTER 2024-12-12 10:54 | Outpatient (REF) | payer MEDICAID, SELFPAY ==
--- OUTSIDE RECORDS SUMMARY | 2024-12-12 12:13 | XMS_ITS | Clinical Summary ---
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 Role Phone Unavailable Primary Care Provider Unavailabl e Social History Tobacco Use Types Packs/Day Years Used Date Smoking Tobacco: Never Assessed Sex and Gender Information Value Date Recorded Sex Assigned at Not on file Legal Sex Male 8:26 PM EST Gender Identity Not on file Sexual Orientation Not on file Plan of Treatment Health Maintenance Due Date Last Done Comments DTaP,Tdap,and Td Vaccines (1 - Tdap) 06/20/2003 Hepatitis B Vaccines (1 of 3 - 19+ 3-dose series) 06/20/2003 Cholesterol Screening (Lipid Panel) 05/15/2023 HIV Screening 05/15/2023 Hepatitis C Screening 05/15/2023 Social Influencers of Health Screening 05/15/2023 COVID-19 Vaccine ( - 2023-2 5 season) 2023 Depression Screening 04/20/2024 Influenza Vaccine (#1) 2024 HIB Vaccines Aged Out No longer eligi ble based on patient's age to complete this topic HPV Vaccines Aged Out No longer eligi ble based on patient's age to complete this topic Hepatitis A Vaccines Aged Out No long er eligible based on patient's age to complete this topic IPV Vaccines Aged Out No longer eligi ble based on patient's age to complete this topic MMR Vaccines Aged Out No longer eligi ble based on patient's age to complete this topic Meningococcal ACWY Vaccine Aged Out N o longer eligible based on patient's age to complete this topic Meningococcal B Vaccine Aged Out No l onger eligible based on patient's age to complete this topic Pneumococcal Vaccine: Pediat rics (0 to 5 Years) and At-Risk Patients (6 to 49 Years) Aged Out No longer eligible b ased on patient's age to complete this topic RSV Immunization Patients Un kimani 20 months Aged Out No longer eligible b ased on patient's age to complete this topic Varicella Vaccines Aged Out No longer eligible based on patient's age to complete this topic
[2024-12-12 14:08] LABS: Hemoglobin A1C 147.4604 umol/L; Total Hemoglobin (HGBA1C) 4000.2156 umol/L
[2024-12-12 14:17] LABS: Anion Gap 11 (12-20); Blood Urea Nitrogen 12 mg/dL (9-16); Calcium 9.4 mg/dL (8.4-10.2); Carbon Dioxide 29 mmol/L (22-29); Chloride 106 mmol/L (96-108); Cholesterol 153 mg/dL (<200); Estimated Glomerular Filt Rate > 60; HDL Cholesterol 32 mg/dL (>40); Potassium 4.1 mmol/L (3.3-5.1); Sodium 142 mmol/L (135-145); Triglycerides 89 mg/dL (<150)
[2024-12-12 14:30] LABS: HIV Num 1 0.05 S/CO (0.00-0.99); ~HepC Num1 0.10 S/CO (0.00-0.79); ~Hepatitis C Antibody Nonreactive (Nonreactive)
[2024-12-12 14:31] LABS: Syphilis Screen Nonreactive (Nonreactive)
== END 2024-12-12 10:55 | disposition home or self-care (01) ==
LOC: HO.HHCL 10:54
PROVIDERS: PCP Nurse Practitioner Primary Care; Visit Provider Nurse Practitioner Primary Care
DX: Z00.00 Encounter for general adult medical examination without abnormal findings (principal); R03.0 Elevated blood-pressure reading, without diagnosis of hypertension; Z83.3 Family history of diabetes mellitus; Z11.3 Encounter for screening for infections with a predominantly sexual mode of transmission; Z11.59 Encounter for screening for other viral diseases; Z11.4 Encounter for screening for human immunodeficiency virus [HIV]
CPT/HCPCS: 36415; 80048; 80061; 83036; 86780; 86803; 87389

== ENCOUNTER 2024-12-30 18:03 | Outpatient (REF) | payer MEDICAID, SELFPAY ==
--- OUTSIDE RECORDS SUMMARY | 2024-12-30 18:05 | XMS_ITS | Clinical Summary ---
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
[2025-01-01 11:10] LABS: CT PCR Urine NOT DETECTED (Not Detect.); NG PCR Urine NOT DETECTED (Not Detect.)
== END 2024-12-30 18:04 | disposition home or self-care (01) ==
LOC: HO.HHCLNP 18:03
PROVIDERS: Visit Provider Registered Nurse
DX: A06.9 Amebiasis, unspecified (principal); R39.9 Unspecified symptoms and signs involving the genitourinary system; Z11.3 Encounter for screening for infections with a predominantly sexual mode of transmission; Z11.8 Encounter for screening for other infectious and parasitic diseases
CPT/HCPCS: 36415; 87086; 87255; 87491; 87591